=== PATIENT | male | born 1980 | race Caucasian/White ===

== ENCOUNTER 2020-04-17 11:01 | Emergency (ER) | payer SELFPAY ==
[~2020-04-17] VITALS: Ht 177.8 cm; Wt 86.4 kg
[2020-04-17 11:12] VITALS: TEMP 97.8
[2020-04-17 11:45] LABS: BASO % 0.1 % (0.0-2.0); EOS # 0.1 (0.0-0.7); EOS % 0.8 % (0-4.0); GRAN # 5.5 (1.4-6.5); GRAN % 71.8 % (42.2-75.2); HEMATOCRIT 46.7 % (42.0-52.0); HEMOGLOBIN 16.2 g/dl (13.5-18.0); LYMPH # 1.6 (1.2-3.4); LYMPH % 20.7 % (20.0-51.0); MEAN CELL VOLUME 86 fl (80.0-100.0); MEAN CORPUSCULAR HEMOGLOBIN 30 pg (27.0-31.0); MEAN CORPUSCULAR HGB CONC 35 g/dl (33.0-37.0); MEAN PLATELET VOLUME 10.2 fl (7.4-10.4); MONO # 0.5 (0.1-0.6); MONO % 6.3 % (1.7-9.3); PLATELET COUNT 221 K/mm3 (130-400); RED BLOOD COUNT 5.41 M/mm3 (4.20-5.60); REDCELL DISTRIBUTION WIDTH-CV 12.6 % (11.5-14.5)
[2020-04-17 12:02] LABS: ALBUMIN 4.5 gm/dL (3.5-5.0); BILIRUBIN,TOTAL 1.1 mg/dL (0.0-1.0); C-REACTIVE PROTEIN 0.8 mg/dL (0.0-0.9); CALCIUM 8.8 mg/dL (8.4-10.2); CREATININE, serum 0.74 (0.66-1.25); POTASSIUM 4.1 mmol/L (3.4-5.0); TOTAL PROTEIN 7.7 gm/dL (6.4-8.2)
[2020-04-17 14:06] VITALS: BP 119/75; PULSE 75
== END 2020-04-17 14:21 | disposition home or self-care (01) ==
LOC: COL.ER 11:01
PROVIDERS: Nurse Practitioner
DX: R55 Syncope and collapse (principal); Z86.19 Personal history of other infectious and parasitic diseases
CPT/HCPCS: J7030